=== PATIENT | male | born 1950 | race Two or more races ===

== ENCOUNTER 2020-08-07 22:07 | Inpatient (IN) | payer MEDICAID ==
[~2020-08-07] VITALS: Ht 172.7 cm; Wt 76.2 kg
[2020-08-07] MEDS ORDERED: [UNRECOGNIZED DRUG - REMARK] (22:27)
[2020-08-07] MEDS ORDERED: NITROGLYCERIN 0.4 MG/TAB BOTTLE SL ONE ×2 (22:30→22:38)
[2020-08-07] MEDS ORDERED: ASPIRIN 325 MG TABLET PO ONE (22:30)
[2020-08-07] MEDS ORDERED: ASPIRIN 325 MG TABLET ONE (22:36)
--- NOTE | 2020-08-07 22:40 | NUR ---
After 1st dose of Nitro sublingual. No change in CP. Patient states pain is 5/10 CP.
[2020-08-07 22:44] LABS: BASOPHILS # (AUTO) 0.1 K/uL (0.0-8.0); BASOPHILS % (AUTO) 0.6 % (0.0-2.0); EOSINOPHILS # (AUTO) 0.1 K/uL (0.0-0.7); EOSINOPHILS % (AUTO) 0.5 % (0.0-7.0); HEMATOCRIT 45.2 % (36.7-47.1); HEMOGLOBIN 15.4 g/dL (12.5-16.3); LYMPHOCYTES # (AUTO) 4.1 K/uL (20.0-40.0); LYMPHOCYTES % (AUTO) 29.8 % (20.5-51.5); MEAN CORPUSCULAR HEMOGLOBIN 29.5 uug (23.8-33.4); MEAN CORPUSCULAR HGB CONC 34 g/dL (32.5-36.3); MEAN CORPUSCULAR VOLUME 86.6 fL (73.0-96.2); MONOCYTES # (AUTO) 0.7 K/uL (2.0-10.0); MONOCYTES % (AUTO) 4.9 % (0.0-11.0); NEUTROPHILS # (AUTO) 8.8 K/uL (1.8-8.9); NEUTROPHILS % (AUTO) 64.2 % (38.5-71.5); PLATELET COUNT (AUTO) 241 K/uL (152-348); RED BLOOD CELL COUNT(AUTO) 5.22 MIL/uL (4.06-5.63); WHITE BLOOD COUNT (AUTO) 13.7 K/uL (3.6-10.2)
--- NOTE | 2020-08-07 22:45 | NUR ---
After 2nd dose of nitro sublingual. No change in CP. Gave 3rd dose of Nitro.
[2020-08-07 22:48] LABS: CREATININE 1.4 mg/dL (0.6-1.3); POTASSIUM 3.5 mmol/L (3.5-5.1)
[2020-08-07] MEDS ORDERED: MORPHINE SULFATE 2 MG/1 ML DISP.SYRIN ONE (22:51)
[2020-08-07] MEDS ORDERED: ONDANSETRON 4 MG/2 ML VIAL ONE (22:51)
--- NOTE | 2020-08-07 22:56 | NUR ---
Patient BP on left upper arm was 101/71, HR 82 and O2 sat 94%, BP on right upper arm was 100/68, HR 77, O2 sat of 95%.
[2020-08-07 23:00] LABS: BILIRUBIN,DIRECT 0.2 mg/dL (0.0-0.2); BILIRUBIN,TOTAL 0.5 mg/dL (0.2-1.0); TOTAL PROTEIN, SERUM 7.5 g/dL (6.4-8.2)
[2020-08-07] MEDS ORDERED: MORPHINE SULFATE 4 MG/1 ML DISP.SYRIN IV ONE (23:00)
[2020-08-07] MEDS ORDERED: ONDANSETRON 4 MG/2 ML VIAL IV ONE (23:00)
[2020-08-07] MEDS ORDERED: HYDROMORPHONE 1 MG/1 ML DISP.SYRIN IV ONE (23:00)
[2020-08-07] MEDS ORDERED: HYDROMORPHONE 1 MG/1 ML DISP.SYRIN ONE (23:32)
[2020-08-07] MEDS ORDERED: IOHEXOL 300MG/ML 100 ML INFUS..BTL ONE (23:46)
[2020-08-07] MEDS ORDERED: SWABABLE VALVE TRANSFER SET EA MC ONE (23:46)
[2020-08-07] MEDS ORDERED: IV NORMAL SALINE 250 ML IV ONE (23:46)
[2020-08-08] MEDS ORDERED: IV NORMAL SALINE 1000 ML BAG IV ONE
[2020-08-08] MEDS ORDERED: PANTOPRAZOLE SODIUM 40 MG VIAL IV ONE (00:30)
--- NOTE | 2020-08-08 00:41 | NUR ---
Called [facility] for possible stemi transfer.
--- NOTE | 2020-08-08 00:45 | NUR ---
Gaurav cardiac interventionalist decline to accept patient at this time due to non acute ST elevation at time.
[2020-08-08] MEDS ORDERED: PANTOPRAZOLE SODIUM 40 MG VIAL ONE (00:53)
[2020-08-08] MEDS ORDERED: HYDROMORPHONE 1 MG/1 ML DISP.SYRIN ONE (00:53)
[2020-08-08] MEDS ORDERED: HEPARIN SODIUM,PORCINE 5,000 UNITS/ML VIAL ONE (01:11)
[2020-08-08] MEDS ORDERED: HEPARIN/D5W DRIP 500 ML ONE (01:12)
[2020-08-08] MEDS ORDERED: HYDROMORPHONE 1 MG/1 ML DISP.SYRIN IV ONE (01:15)
[2020-08-08] MEDS ORDERED: MISCELLANEOUS MED XX ONE (01:30)
[2020-08-08] MEDS: HEPARIN/D5W DRIP 500 ML IV PRN ×2 (01:32→08:02)
--- NOTE | 2020-08-08 03:00 | NUR ---
Accepted by Dr Charles who is station baggage porter for Epic panel.
[2020-08-08] MEDS ORDERED: Z GUARD REMEDY PASTE 57 GM TUBE TOP PRN (03:15)
[2020-08-08] MEDS ORDERED: ACETAMINOPHEN 325 MG TABLET PO PRN (03:15)
[2020-08-08] MEDS ORDERED: ONDANSETRON 4 MG/2 ML VIAL IV PRN (03:15)
[2020-08-08] MEDS ORDERED: MORPHINE SULFATE 2 MG/1 ML DISP.SYRIN IV PRN (03:15)
[2020-08-08] MEDS ORDERED: MAGNESIUM HYDROXIDE 30 ML LIQUID UDC PO PRN (03:15)
--- NOTE | 2020-08-08 07:00 | NUR ---
recieved pt in bed. pt awake, pt states that he feels much better, marlen hairston n/v or cp at this point. pt on momitor and heparin drip. transfer to tele pending on the bed availability.
--- NOTE | 2020-08-08 08:26 | NUR ---
breakfast tray at bedside.
[2020-08-08] MEDS ORDERED: FENO160T PO (09:12)
--- NOTE | 2020-08-08 09:13 | NUR ---
pt was able to show a picture of the statin he takes at home. med recon updated.
--- NOTE | 2020-08-08 10:50 | NUR ---
prt resting, no sign of distress. transfer to tele pending on availability
--- NOTE | 2020-08-08 13:30 | NUR ---
called Svetlana Rivero, admitting parctitioner, regarding the nre Ekg and the increase of tropnin. Svetlana oked to transfer the pt to floor.
--- NOTE | 2020-08-08 13:50 | NUR ---
Svetlana Nunez NP and ddddr. Lam, online journalist at bedside.
--- NOTE | 2020-08-08 14:00 | NUR ---
Dr. Lam ordered to stop the heparin drip.
[2020-08-08] MEDS: IV NS 1000 ML 1,000 ML IV PRN ×3 (14:25→18:33)
[2020-08-08] MEDS ORDERED: IBUPROFEN 800 MG TABLET PO PRN (14:45)
[2020-08-08] MEDS ORDERED: ONDANSETRON 4 MG/2 ML VIAL ONE (15:48)
[2020-08-08] MEDS: COLCHICINE 0.6 MG TABLET PO SCH (15:48)
[2020-08-08] MEDS ORDERED: MORPHINE SULFATE 2 MG/1 ML DISP.SYRIN ONE (15:49)
--- NOTE | 2020-08-08 16:15 | NUR ---
pt resting, on monitor,
--- NOTE | 2020-08-08 16:51 | NUR ---
pt transfered to floor in stable condition.
[2020-08-08 17:00] VITALS: BP 124/76
[2020-08-08 20:06] VITALS: BP 116/71
[2020-08-08] MEDS ORDERED: Fenofibrate 160 MG PO SCH (21:00)
[2020-08-08 21:25] VITALS: BP 116/71
[2020-08-08] MEDS: HYDROCODONE/APAP 5-325MG TABLET PO PRN (21:45)
[2020-08-09] VITALS: BP 102/58
--- NOTE | 2020-08-09 03:52 | NUR ---
patient resting comfortably. v/s stable. no s/s of acute distress noted at this time. NSR on tele monitor. safety precautions provided. bed in lowest position. side rails up x2, and bed alarm on. norco administered x1 for c/o of pain. will continue to monitor and assess.
[2020-08-09 04:00] VITALS: BP 125/59
[2020-08-09 04:03] VITALS: BP 121/61
[2020-08-09] MEDS: IV NS 1000 ML 1,000 ML IV PRN (04:57)
[2020-08-09] MEDS: HYDROCODONE/APAP 5-325MG TABLET PO PRN (05:43)
[2020-08-09 09:14] LABS: BASOPHILS % (AUTO) 0.3 % (0.0-2.0); EOSINOPHILS % (AUTO) 0.2 % (0.0-7.0); HEMATOCRIT 42.9 % (36.7-47.1); HEMOGLOBIN 14.6 g/dL (12.5-16.3); LYMPHOCYTES # (AUTO) 1.5 K/uL (20.0-40.0); LYMPHOCYTES % (AUTO) 17.2 % (20.5-51.5); MEAN CORPUSCULAR HEMOGLOBIN 29.5 uug (23.8-33.4); MEAN CORPUSCULAR HGB CONC 34 g/dL (32.5-36.3); MEAN CORPUSCULAR VOLUME 86.9 fL (73.0-96.2); MONOCYTES # (AUTO) 0.6 K/uL (2.0-10.0); MONOCYTES % (AUTO) 6.5 % (0.0-11.0); NEUTROPHILS # (AUTO) 6.6 K/uL (1.8-8.9); NEUTROPHILS % (AUTO) 75.8 % (38.5-71.5); PLATELET COUNT (AUTO) 199 K/uL (152-348); RED BLOOD CELL COUNT(AUTO) 4.94 MIL/uL (4.06-5.63); WHITE BLOOD COUNT (AUTO) 8.7 K/uL (3.6-10.2)
[2020-08-09 09:17] LABS: CREATININE 1.3 mg/dL (0.6-1.3); MAGNESIUM 1.9 mg/dL (1.8-2.4); PHOSPHOROUS 1.6 mg/dL (2.5-4.9); POTASSIUM 3.7 mmol/L (3.5-5.1)
[2020-08-09] MEDS: COLCHICINE 0.6 MG TABLET PO SCH ×2 (09:36→17:15)
[2020-08-09] MEDS ORDERED: IBUPROFEN 800 MG TABLET PO SCH (11:45)
[2020-08-09 12:00] VITALS: BP 144/89
[2020-08-09] MEDS ORDERED: NEUTRA PHOS PACKET PO ONE (13:15)
[2020-08-09] MEDS ORDERED: Colchicine PO (13:18)
[2020-08-09] MEDS ORDERED: PANT40TA2 PO (13:18)
[2020-08-09] MEDS ORDERED: IBUP-1957 PO (13:18)
[2020-08-09 16:00] VITALS: BP 129/90
--- NOTE | 2020-08-09 19:51 | NUR ---
RECEIVED PT IN NO ACUTE DISTRESS. PT TO BE DISCHARGE. WAITING FOR HIS SON TO PICK HIM UP. SAFETY AND COMFORT PROVIDED. WILL CONTINUE TO MONITOR.
--- NOTE | 2020-08-09 20:27 | NUR ---
PT DISCHARGED. ACCOMPANIED BY LIGHT RAIL TRAIN OPERATOR IN THE LOBBY. PT WAS PICKED UP BY HIS . PT IN NO ACUTE DISTRESS. PT STABLE. IV TAKEN OUT AND ID WRISTBAND TAKEN OFF. DISCHARGE PAPERS WITH THE PT. DISCHARGE INSTRUCTIONS GIVEN AND PT UNDERSTAND IT.
[2020-08-10] MEDS ORDERED: PANTOPRAZOLE SODIUM 40 MG TABLET.DR PO SCH (07:00)
--- NOTE | 2020-08-10 18:30 | NUR ---
Pt for discharge to [facility] set up by JULIUS MCCRAY from [place]. Pt is in no acute distress. Dressing changed pictures updated and taken.
== END 2020-08-09 20:27 | disposition home or self-care (01) | DRG 207 ==
LOC: ER 22:11 → TELE3 08-08 13:18
PROVIDERS: ADMIT Nurse Practitioner Acute Care; ATTEND Nurse Practitioner Acute Care
DX: I30.1 Infective pericarditis (principal); N17.0 Acute kidney failure with tubular necrosis; E78.5 Hyperlipidemia, unspecified; I10 Essential (primary) hypertension; N30.90 Cystitis, unspecified without hematuria; E78.1 Pure hyperglyceridemia; Z20.828 Contact with and (suspected) exposure to other viral communicable diseases
CPT/HCPCS: 36415; 70030-TC; 71045; 71260; 83735; 84100; 85025; 85651; 85730; 86140; 93005; 93307; A4663; C9113; G0378; J1170; J1644; J2270; J2405; J7030; J7050; Q9967; U0003

== ENCOUNTER 2021-12-21 13:20 | Emergency (ER) | payer MEDICAID ==
[~2021-12-21] VITALS: Ht 172.7 cm; Wt 79.4 kg
[~2021-12-21 13:20] MED LIST: Colchicine PO; FENO160T PO; IBUP-1957 PO; PANT40TA2 PO; [UNRECOGNIZED DRUG - REMARK]
--- NOTE | 2021-12-21 13:29 | NUR ---
Patient ambulatory accompanied by son, alert and orientedx4 with complaints of throbbing headache and feeling warm started last night. Denes nausea/vomiting, abdominal pain. Not in distress.
--- NOTE | 2021-12-21 13:30 | NUR ---
MD at bedside, medical screening exam in process.
[2021-12-21] MEDS ORDERED: ACETAMINOPHEN ES 500 MG TABLET ONE (13:47)
--- NOTE | 2021-12-21 13:52 | NUR ---
UA, covid specimen sent to lab.
[2021-12-21] MEDS ORDERED: ACETAMINOPHEN ES 500 MG TABLET PO ONE (14:00)
[2021-12-21 14:17] LABS: *BILIRUBIN,URIN NEGATIVE (NEGATIVE); *BLOOD, URINE 2+ (NEGATIVE); *CLARITY,URINE CLEAR (CLEAR); *COLOR,URINE YELLOW (YELLOW); *KETONES,URINE NEGATIVE (NEGATIVE); *UROBILINOGEN,URINE 0.2 E.U./dl (NORMAL); LEUKOCYTE ESTERASE ,URINE 3+ (NEGATIVE); NITRITE, URINE NEGATIVE (NEGATIVE); UGLUCOSE NEGATIVE (NEGATIVE)
[2021-12-21] MEDS ORDERED: CEphaleXIN 500 MG CAPSULE ONE (14:29)
[2021-12-21] MEDS ORDERED: CEphaleXIN 500 MG CAPSULE PO ONE (14:30)
[2021-12-21 14:31] LABS: BACTERIA,URINE MANY /HPF (NONE SEEN); SQUAMOUS EPITHELIAL CELL,UR NONE SEEN /HPF (NONE SEEN); WBC,URINE TNTC /HPF (0-3)
[2021-12-21] MEDS ORDERED: CEPH500C2 PO (14:31)
--- NOTE | 2021-12-21 14:38 | NUR ---
Patient discharged to home in stable condition. Written and verbal after care instructions given to patient and family. Patient verbalizes understanding of instructions. Stressed follow up or return to ER for worsening s/s.
[2021-12-21 14:39] VITALS: BP 131/90
== END 2021-12-21 14:40 | disposition home or self-care (01) ==
LOC: ER 13:20
DX: N39.0 Urinary tract infection, site not specified (principal); R51.9 Headache, unspecified; Z20.822 Contact with and (suspected) exposure to COVID-19; E78.5 Hyperlipidemia, unspecified; I10 Essential (primary) hypertension; Z79.899 Other long term (current) drug therapy
CPT/HCPCS: 87077; 87086; A4663; A9150

== ENCOUNTER 2024-07-22 11:11 | Emergency (ER) | payer MEDICARE, MEDICAID ==
[~2024-07-22] VITALS: Ht 172.7 cm; Wt 79.4 kg
[~2024-07-22 11:11] MED LIST changes: +CEPH500C2 PO
[2024-07-22 11:39] VITALS: O2SAT 98
[2024-07-22] MEDS ORDERED: SULF1TAB48 PO (13:11)
== END 2024-07-22 13:36 | disposition home or self-care (01) ==
LOC: ER 11:11
DX: H00.014 Hordeolum externum left upper eyelid (principal); I10 Essential (primary) hypertension; E78.5 Hyperlipidemia, unspecified; Z79.899 Other long term (current) drug therapy
CPT/HCPCS: A4606; A4663